=== PATIENT | male | born 1970 | race Caucasian/White ===

== ENCOUNTER 2022-09-04 18:01 | Emergency (ER) | payer OTHER ==
[~2022-09-04] VITALS: Ht 172.7 cm; Wt 115.0 kg
[2022-09-04] MEDS ORDERED: LIDOCAINE HCL 1% 20ML VIAL (Pyxis) INJ INFIL ONE (20:45)
[2022-09-04] MEDS ORDERED: CEFTRIAXONE SODIUM 500 MG/VIAL IM ONE (20:45)
[2022-09-04] MEDS ORDERED: KETOROLAC 60MG/2ML VIAL IM ONE (20:45)
[2022-09-04 21:09] LABS: BASOPHILS % 0.4 % (0.0-2.0); EOSINOPHILS % 6.5 % (0.0-5.0); HEMATOCRIT. 41.6 % (42.0-52.0); HEMOGLOBIN. 14.5 g/dL (14.0-18.0); LYMPHOCYTES % 23.1 % (20.0-50.0); MEAN CORPUSCULAR HEMOGLOBIN 29.5 pg (28.0-32.0); MEAN CORPUSCULAR VOLUME 84.8 fL (80.0-94.0); MEAN PLATELET VOLUME 7.5 fl (7.4-10.4); MONOCYTES % 7.8 % (2.0-8.0); NEUTROPHILS % 62.2 % (40.0-76.0); PLATELET 304 x1000/uL (130-400)
[2022-09-04 21:17] LABS: CHLORIDE 105 mEq/L (98-107)
[2022-09-04 21:17] LABS: CLARITY URINE CLEAR (CLEAR); COLOR URINE YELLOW (YELLOW); KETONES URINE NEGATIVE (NEGATIVE); LEUKOCYTE ESTERASE URINE NEGATIVE (NEGATIVE); NITRITE URINE NEGATIVE (NEGATIVE); OCCULT BLOOD URINE NEGATIVE (NEGATIVE); PROTEIN URINE NEGATIVE (NEGATIVE); SPECIFIC GRAVITY URINE 1.013 (1.005-1.030); UROBILINOGEN URINE 0.2 E.U./dL (0.2-1.0)
[2022-09-04] MEDS ORDERED: IBUP-2028 MT (23:20)
[2022-09-04] MEDS ORDERED: DOXY100C5 MT (23:20)
[2022-09-04 23:31] VITALS: BP 132/78
[2022-09-07 04:07] LABS: NEISSERIA GONORRHOEAE NAA Negative (Negative)
== END 2022-09-04 23:34 | disposition home or self-care (01) ==
LOC: ER 18:01
DX: R30.0 Dysuria (principal)
CPT/HCPCS: 36415; 74176; 80053; 81003; 85025; 87086; 87491; 87591; 96372; 99285; J0696; J1885; J3490; Z7610